=== PATIENT | female | born 1940 | race Caucasian/White ===

== ENCOUNTER → 2017-06-10 | Outpatient (CLI) | payer OTHER ==
[~2017-06-10] MED LIST: ASPEC325 PO; BIMA0.01; DEXILANT PO; HYDR-5688 PO; STLS; ULT50X PO
[2017-06-10 18:07] LABS: BASO % 0.4 %; BASO ABS # 0.03 K/uL (0-0.2); COMPLETE YES; EOS % 4.5 %; IG% 0.1 %; LYMPH % 32.3 %; LYMPH ABS # 2.29 K/uL (1.2-3.4); MEAN CELL VOLUME 92.2 fL (80-100); MEAN CORPUSCULAR HEMOGLOBIN 29.2 pg (25-34); MEAN CORPUSCULAR HGB CONC 31.7 g/dl (32-36); MEAN PLATELET VOLUME 9.8 fL (7.4-10.4); MONO % 6.9 %; NEUT % 55.8 %; PLATELET COUNT 276 K/uL (130-400); WHITE BLOOD COUNT 7.08 K/uL (4.8-10.8)
== END | disposition home or self-care (01) ==
LOC: C.CPL 17:32
DX: Z96.652 Presence of left artificial knee joint (principal)